=== PATIENT | male | born 1940 | race Caucasian/White ===

== ENCOUNTER 2020-11-06 14:25 | Outpatient (REF) | payer MEDICARE, SELFPAY | END 2020-11-06 14:26 | disposition home or self-care (01) | LOC: HO.BBR 14:25 | PROVIDERS: Visit Provider Internal Medicine | DX: Z13.89 Encounter for screening for other disorder (principal) ==

== ENCOUNTER 2025-07-17 13:36 | Outpatient (AMB) | payer MEDICARE, SELFPAY ==
[2025-07-17 13:38] VITALS: BMI 25.1
--- NOTE | 2025-07-17 13:38 | A.PHYSOV ---
Vital Signs 07/17/25 13:38 Height 5 ft 10 in Weight 175 lb BMI 25.1 Intake Visit Reasons: MRI followup Intake Note: Patient is a 84 year old male in office today for Lumbar MRI results. 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 The lumbar sacral spine MRI on January 08, 2023, revealed diffuse degenerative changes with severe right and moderate left neural foraminal stenosis, and moderate central canal stenosis at the L3-L4 level. A right L3 transforaminal injection on December 17, 2023, initially provided an 80% reduction in symptoms. A subsequent procedure on May 11, 2025, failed to offer significant relief, leading to a referral for another MRI. The MRI on June 22, 2025, showed progression to severe spinal canal stenosis at the L3-L4 level and moderate to severe bilateral neural foraminal narrowing at both L3-L4 and L4-L5 levels. The patient experiences neuropathy and knee pain, exacerbated by standing or walking, but alleviated when using a shopping cart or sitting. The knee pain is likely associated with the lumbar spinal issues, particularly the L3-L4 central stenosis and L3 and L4 neural foraminal stenosis. Results - MRI (January 08, 2023): Diffuse degenerative changes, severe right and moderate left neural foraminal stenosis, moderate central canal stenosis at L3-L4. - MRI (June 22, 2025): Severe spinal canal stenosis at L3-L4, moderate to severe bilateral neural foraminal narrowing at L3-L4 and L4-L5. FORMERLY [facility], [facility] Medical History (Updated 07/17/25 @ 13:55 by Philip Fowler DO) Lumbar radiculitis Spinal stenosis, lumbar region with neurogenic claudication Surgical History History of coronary artery stent placement Status post cardiac surgery History of neck surgery History of cataract surgery History of tonsillectomy History of back surgery Social History Alcohol intake: current Alcohol intake frequency: holidays/special occasions only Patient Tobacco Use Status: Former Tobacco user Use of substances other than those prescribed or required for medical reasons: No Current occupational status: retired Review of Systems Narrative Review of Systems - Musculoskeletal: Reports knee pain when standing or walking. - Neurological: Reports neuropathy. Denies change in bowel bladder habits, denies fever or chills, denies uncontrolled depression or suicidal ideation Physical Exam Exam Exam: Physical Exam Patient appears to be in no acute distress. Forward flexed posture. Lumbar extension was restricted. Dural tension signs were negative. Neurological examination was nonfocal. Heel walk and toe walk were not tested. SI provocative maneuvers were negative. Patient demonstrated no upper motor neuron signs. Procedures and Interventions Vital Signs: BMI result Body Mass Index 25.1 Assessment & Plan Assessment & Plan (1) Spinal stenosis, lumbar region with neurogenic claudication: Code(s): M48.062 - Spinal stenosis, lumbar region with neurogenic claudication Category: Medical (2) Lumbar radiculitis: Code(s): M54.16 - Radiculopathy, lumbar region Category: Medical Plan Plan Patient was informed and verbally consented to the use of an ambient scribe for clinic note documentation during this visit. 1. Lumbar Radiculitis The patient has been experiencing lumbar radiculitis, with a history of significant symptom relief following a right L3 transforaminal injection on December 17, 2023. However, a repeat procedure on May 11, 2025, did not yield the same relief, necessitating further evaluation. The plan includes referral to a spine surgeon for potential surgical intervention, given the progression of spinal stenosis and persistent symptoms. 2. Spinal Canal Stenosis The patient's spinal canal stenosis has progressed, as evidenced by the MRI findings from June 22, 2025, showing severe stenosis at the L3-L4 level. The patient is referred to a spine surgeon to discuss potential surgical options, including minimally invasive procedures to alleviate nerve compression. 3. Neural Foraminal Stenosis Neural foraminal stenosis at the L3-L4 and L4-L5 levels has been confirmed by MRI, contributing to the patient's symptoms. The patient is advised to consult with a spine surgeon to explore surgical interventions that may relieve the foraminal narrowing. 4. Knee Pain The patient experiences knee pain, particularly when standing or walking, which may be associated with the lumbar spinal stenosis. The patient is encouraged to discuss this with the spine surgeon to assess if surgical intervention could alleviate the symptoms. Discussion Notes During the visit, I discussed with the patient the progression of spinal stenosis and the potential need for surgical intervention. I explained that a spine surgeon would evaluate the MRI findings and determine the best course of action, which may include minimally invasive surgery to relieve nerve compression. We also talked about the possibility of using a walker to alleviate symptoms while waiting for surgical consultation. Patient Instructions - Follow up with the spine surgeon as scheduled. - Use a walker or shopping cart to help relieve pain when standing or walking. - Contact the clinic if symptoms worsen or if there are any questions. Orders: Referrals Neuro Spine Referral M48.062 - Spinal stenosis, lumbar region with neurogenic claudication, M54.16 - Radiculopathy, lumbar region Coding Level of Care Code Est Pt Level 4 (04318) Complex visit Add On G2211 Diagnoses Spinal stenosis, lumbar region with neurogenic claudication M48.062 Lumbar radiculitis M54.16
--- OUTSIDE RECORDS SUMMARY | 2025-07-17 17:30 | XMS_ITS | Patient Health Record ---
Author Organization [facility] Address [address] [place] [address] Care Team Providers Care Shoe Stock Associate Name Role Phone Binta Haskins MD Primary Care Provider Pranay Grey Unavailable [phone] Allergies Allergen (clinical drug ingredient) Drug/Non Drug Allergy documented on EMR Reaction Allergy Type Onset Date Status amoxicillin Amoxicillin hives Drug Allergy Act js morphine Morphine Sulfate does not work Drug Allergy Active Reason For Referral No Information Medications Medication SIG (Take, Route, Frequency, Duration) Notes Start Date End Date Status Finasteride 5 MG 1 tablet Orally Once a day; Duration: 30 day(s) Active oxyCODONE HCl 5 MG Orally TID Active Pantoprazole Sodium 40 MG 1 tablet Orall y Once a day; Duration: 30 day(s) Active Rosuvastatin Calcium 40 MG 1 tablet Oral ly Once a day; Duration: 30 day(s) Active Valsartan 80 MG 1 tablet Orally Twic e a day Active Metoprolol Succinate 100 MG 1 capsule Or ally Once a day; Duration: 30 day(s) Active TraZODone HCl ER Act js Olodaterol HCl 2.5 MCG/ACT 2 puffs Inhal ation Once a day Active Aspir-81 Active clonazePAM 2 MG 1 tablet Orally Once a day Active Amitiza 8 MCG 1 capsule with food and water Orally Twice a day; Duration: 30 day(s) Active fentaNYL 25 MCG/HR 1 patch to skin Transdermal Active Social History Tobacco Use: Social History Observation Description Date Details (start date - stop date) Former Smoker NA - NA Tobacco Use/Smoking Question Answer Notes Are you a: former smoker Additional Findings: Tobacco Non-User Current no n-smoker Alcohol Screen Question Answer Notes Did you have a drink contain ing alcohol in the past year? Yes How many drinks did you have on a typical day when you were drinking in the past year? 1 or 2 drinks (0 point) How often did you have 6 or more drinks on one occasion in the past year? Weekly (3 points) Points 3 Interpretation Negative Tobacco use other than smoking: Question Answer Notes Are you an other tobacco user? No Problems Problem Type SNOMED Code ICD Code Onset Dates Problem Status W/U Status Risk Notes Problem Bilateral atherosclerosis of arteries of lower limbs (disorder) ([id number] ) Atherosclerosis of jackson artery of both lower extremities, with unspecified presence of clinical manifestation (I70.203) Active confirmed Plan Of Treatment Pending Test Test Name Order Date [id number] NAIL, 6 OR MORE 09/28/2019 [id number] Plate 09/28/2019 [id number] SKIN LESIONS, 2 TO 4 09/28/19 20 Insurance Providers Payer Name Payer Address Payer Phone Subscriber Number Group Number Insured Name Patient Relationship to Insured Coverage Start Date Coverage End Date [employer] [place] [employer]age [facility] [address] [place] [address] [id number] Luis Olivia Self - patient is the insured Medical (General) History Medical History History ICD Code Anxiety Arthritis Back,Hip,and Knee pain CAD (Cholesterol) Depression Heart disease Hiatal hernia High blood pressure Measles Mumps Chicken pox Surgical History Surgery Date(Month/Year) double bypass 2012 carotid artery 2019 gall bladder 2019 appendectomy 2019 hemorrhoidectomy 2019
--- OUTSIDE RECORDS SUMMARY | 2025-07-17 17:30 | XMS_ITS ---
Author Name [facility] Organization Unknown Care Team Organization Name Specialty Phone Email Start Date End Da te [facility] Eyal Zeng Primary Care 06/30/20222023
--- OUTSIDE RECORDS SUMMARY | 2025-07-17 17:31 | XMS_ITS | Clinical Summary ---
Author Organization [employer] [facility] Address [address] [place] [address] Care Team Providers Care Willow Machine Operator Name Role Phone Larry Cali MD Primary Care Provider [phone] Allergies Active Allergy Reactions Criticality Noted Date Comments Morphine And Codeine 09/03/2020 Penicillins 09/03/2020 Medications Medication Sig Dispensed Refills Start Date End Date Status amLODIPine (NORVASC) tablet 5 mg Take 1 tablet (5 mg total) by mouth every night at bedtime. 0 05/31/2020 Active metoprolol succinate (TOPROL-XL) 24 hr tablet 100 mg Take 1 tablet (100 mg total) by mouth daily. 0 06/08/2020 Active oxyCODONE (ROXICODONE) 5 MG immediate release tablet TAKE 1 TABLET BY MOUTH 3 TIMES A DAY NEEDED FOR LOW BACK ARTHRITIS PAIN 0 08/27/2020 Active pantoprazole (PROTONIX) 40 MG tablet Take 1 tablet (40 mg total) by mouth daily. 0 06/12/2020 Active valsartan (DIOVAN) tablet 80 mg Take 1 tablet (80 mg total) by mouth. 0 Active rosuvastatin (CRESTOR) tablet 40 mg Take 1 tablet (40 mg total) by mouth. 0 Active fentaNYL 37.5 MCG/HR PT72 0 08/20/2021 Active traZODone (DESYREL) 100 MG tablet Take 1 tablet (100 mg total) by mouth every night at bedtime. 0 Active finasteride (PROSCAR) 5 MG tablet Take 1 tablet (5 mg total) by mouth daily. 0 Active aspirin EC 81 MG tablet Take 1 tablet (81 mg total) by mouth daily. 0 Active pregabalin (LYRICA) capsule 50 mg Take 1 capsule (50 mg total) by mouth 3 (three) times a day. 0 Active Active Problems Problem Noted Date Diagnosed Date COVID-19 08/09/[address] scan of lung 08/09/2023 Weight loss 08/09/2023 Hereditary hemochromatosis 08/24/2019 Centrilobular emphysema 06/16/2017 PVD (peripheral vascular disease) 01/19/2012 Overview: Overview: Carotid stenosis, ED. 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 stent x 2, IMI RCA stent x 1, repeat cath 09/18/02 then 02/04/10 for CP by JZ: LVEF 65%, distal L main 40% near bifurcation to LAD & LCX. Prox LAD 50%, mid LAD long segment up to 65%. RCA 50% just before stent and mild instent restenosis. Medical RX, if unstable then CABG to LAD. Neg Lexiscan MIBI 02/11/11, nl LVEF. Social History Tobacco Use Types Packs/Day Years Used Date Smoking Tobacco: Never Assessed Sex and Gender Information Value Date Recorded Sex Assigned at Not on file Gender Identity Not on file Sexual Orientation Not on file Job Start Date Occupation Industry Not on file Not on file Not on file Last Filed Vital Signs Vital Sign Reading Time Taken Comments Blood Pressure 132/58 05/10/2024 2:02 PM EDT Pulse 52 05/10/2024 2:02 PM EDT Temperature 36.6 C (97.8 F) 05/10/2024 2:02 PM EDT Respiratory Rate - - Oxygen Saturation 97% 05/10/2024 2:02 PM EDT Inhaled Oxygen Concentration - - Weight 87.7 kg (193 lb 6.4 oz) 05/10/2024 2:02 P M EDT Height - - Body Mass Index - - Plan of Treatment Health Maintenance Due Date Last Done Comments COVID-19 Vaccine (#1) 03/11/1941 Depression Screening 1953 Preventative Health Evaluation 1959 Fall Risk Assessment 2006 RSV Adult > 60+ Yrs or (1 - 1-dose 75+ series) 2016 Influenza Vaccine (#1) 2025 3, 06/08/2022, 05/12/2021, Additional history exists DTap / Tdap / Td (4 - Td or Tdap) 01/13/2033 01/13/2023, 01/05/2013, 01/05/2013, Additional history exists Shingrix-Zoster Vaccine Completed 04/28/2018, 11/04 Pneumococcal Vaccine Completed 01/13/2023, 06/16/2017, 08/02/2015, Additional history exists Hepatitis B Vaccines Aged Out No long er eligible based on patient's age to complete this topic RSV Ped < 20 months Aged Out No longe r eligible based on patient's age to complete this topic Care Teams Willow Machine Operator Relationship Specialty Start Date End Date Larry Cali MD [address] [place] [address] PCP - General Internal Medicine 09/25/22
--- OUTSIDE RECORDS SUMMARY | 2025-07-17 17:31 | XMS_ITS | Clinical Summary ---
Author Organization [facility] Address [address] [place] [address] Phone Care Team Providers Care Orientation And Mobility Instructor Name Role Phone Larry Cali MD Primary Care Provider [phone] Allergies Active Allergy Reactions Criticality Noted Date Comments Morphine 09/03/2020 Penicillins Hives 01/05/2006 Medications amLODIPine (NORVASC) 5 mg tablet Take 1 tablet (5 mg total) by mouth 1 (one) time each day. Active aspirin 81 mg EC tablet Take by mouth. Activ e cholecalciferol (VITAMIN D-3) 50 mcg (2,000 unit) tablet Take by mouth. Ac tive cyanocobalamin (VITAMIN B-12) 1,000 mcg tablet Take 1 tablet (1,000 mcg total) by mouth 1 (one) time each day. 5 Active escitalopram (LEXAPRO) 5 mg tablet Take 3 tablets (15 mg total) by mouth 1 (one) time each day. Active fentaNYL (DURAGESIC) 25 mcg/hr APPLY TOPICALLY EVERY 72 HOURS,INSTR:D O NOT FILL UNTIL 04/18/25 DIRECTED ON PACKAGE LABELING. Active finasteride (PROSCAR) 5 mg tablet Take 1 tablet (5 mg total) by mouth 1 (one) time each day. Active metoprolol succinate (TOPROL-XL) 50 mg 24 hr tablet Take 1 tablet (50 mg total) by mouth 1 (one) time each day. 5 Active nitroglycerin (NITROSTAT) 0.4 mg SL tablet PLEASE SEE ATTACHED FOR DETAILED DIRECTIONS Active oxyCODONE (ROXICODONE) 5 mg immediate release tablet TAKE 1 TABLET BY MOUTH 4 TIMES A DAY NEEDED FOR SEVERE PAIN Active pantoprazole (PROTONIX) 40 mg EC tablet Take 1 tablet (40 mg total) by mouth 1 (one) time each day. Active pregabalin (LYRICA) 50 mg capsule Take 1 capsule (50 mg total) by mouth 2 (two) times a day. Active rosuvastatin (CRESTOR) 40 mg tablet Take 1 tablet (40 mg total) by mouth. Active traZODone (DESYREL) 100 mg tablet Take 1 tablet (100 mg total) by mouth. Active valsartan (DIOVAN) 80 mg tablet Take 1 tablet (80 mg total) by mouth. Active Active Problems Problem Noted Date Diagnosed Date Hereditary hemochromatosis (CMS/HCC V24) 020 Overview (05/09/2025): Dr. Tesfaye, restarting phlebotomy 08/2020 Encounters Date Type Department Care Team Description 05/09/2025 2:00 PM EDT Office Visit [facility] Hematology Oncology [address] [place] [address] Subramonia-Tati Pham MD Hereditary hemochromatosis ([facility]/HCC V24) (Primary Dx) from Last 3 Months Social History Tobacco Use Types Packs/Day Years Used Date Smoking Tobacco: Former Cigarettes Tobacco Cessation:Counseling Given: Not Answered Alcohol Use Standard Drinks/Week Comments Not Currently 0 (1 standard drink = 0.6 oz pur e alcohol) Sex and Gender Information Value Date Recorded Sex Assigned at Not on file Legal Sex Male 10:38 AM EST Gender Identity Not on file Sexual Orientation Not on file Obstetrics History Last Filed Vital Signs Vital Sign Reading Time Taken Comments Blood Pressure 128/47 05/09/2025 2:13 PM EDT Pulse 51 05/09/2025 2:13 PM EDT Temperature 37 C (98.6 F) 05/09/2025 2:13 PM EDT Respiratory Rate - - Oxygen Saturation 95% 05/09/2025 2:13 PM EDT Inhaled Oxygen Concentration - - Weight 83.3 kg (183 lb 9.6 oz) 05/09/2025 2:13 P M EDT Height 177.8 cm (5' 10 ) 05/09/2025 2:13 PM EDT Body Mass Index 26.34 05/09/2025 2:13 PM EDT Plan of Treatment Upcoming Encounters Date Type Department Care Team (Late st Contact Info) Description 05/08/2026 2:00 PM EDT Office Visit [facility] Hematology Oncology [address] [place] [address] Tati Ibrahim MD [address] [place] [address] Health Maintenance Due Date Last Done Comments Colorectal Cancer Screening: Colonoscopy 1940 Hepatitis A Vaccines (1 of 2 - Risk 2-dose series) 1960 Hepatitis B Vaccines (1 of 3 - Risk 3-dose series) 2001 RSV Immunization Adult Patients (1 - 1-dose 75+ series) 2016 Cholesterol Screening (Lipid Panel) 08/01/2022 Falls Risk Assessment 08/01/2022 Medicare Annual Wellness Visit 08/01/2022 Social Influencers of Health Screening 08/01/2022 Hypertension/CHF/CAD Annual BMP Blood Test 08/02/2022 Depression Screening 08/23/2024 COVID-19 Vaccine ( season) 2025 07/31/2022, 08/30/2021, 10/05/2020, Additional history exists Influenza Vaccine (#1) 2025 , 05/17/2023, 06/08/2022, Additional history exists DTaP,Tdap,and Td Vaccines (5 - Td or Tdap) 01/13/2033 01/13/2023, 01/05/2013, 03/05/2011, Additional history exists Zoster Vaccines Completed 04/28/2018, 10/21, 11/04/2012 Pneumococcal Vaccine: 50+ Years Completed 01/13/2023, 06/16/2017, 08/02/2015, Additional history exists HIB Vaccines Aged Out No longer eligi ble based on patient's age to complete this topic HPV Vaccines Aged Out No longer eligi ble based on patient's age to complete this topic IPV Vaccines Aged Out No longer eligi ble based on patient's age to complete this topic MMR Vaccines Aged Out No longer eligi ble based on patient's age to complete this topic Meningococcal ACWY Vaccine Aged Out N o longer eligible based on patient's age to complete this topic Meningococcal B Vaccine Aged Out No l onger eligible based on patient's age to complete this topic RSV Immunization Patients Under 20 months Aged Out No longer eligible based on patient's age to complete this topic Varicella Vaccines Aged Out No longer eligible based on patient's age to complete this topic Insurance [employer] Care Teams Orientation And Mobility Instructor Relationship Specialty Start Date End Date Larry Cali MD [id number] [place], [place] [id number] PCP - General 09/25/22
== END 2025-07-17 14:00 | disposition home or self-care (01) ==
LOC: HO.HPHYS 13:36
PROVIDERS: PCP Internal Medicine; Visit Provider Physical Medicine & Rehabilitation
DX: M48.062 Spinal stenosis, lumbar region with neurogenic claudication (principal); M54.16 Radiculopathy, lumbar region
CPT/HCPCS: 99214; G2211

== ENCOUNTER → 2025-07-17 13:36 | Outpatient (BNVA) | payer MEDICARE, SELFPAY | PROVIDERS: PCP Internal Medicine; Visit Provider Physical Medicine & Rehabilitation | DX: M48.062 Spinal stenosis, lumbar region with neurogenic claudication (principal); M54.16 Radiculopathy, lumbar region; M25.569 Pain in unspecified knee | CPT/HCPCS: 99212 ==

== ENCOUNTER 2025-08-08 12:39 | Outpatient (AMB) | payer MEDICARE, SELFPAY ==
--- NOTE | 2025-08-08 13:04 | A.SPINEOV_ITS ---
Intake Visit Reasons: lumbar stenosis Intake Note: Mr. Knapp is here today c/o back pain. MRI done @ [facility]. 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 Fowler, Thank you for referring Luis to our office today. He is a pleasant 84 year old male who is referred to us by your office for evaluation/consideration of surgical intervention due to worsening spinal stenosis. He had previous injections with the L3-4 level which provided good relief of his pain. Unfortunately his pain returned and he attempted to another series of injections which did not seem particularly helpful at treating his pain. He reports that he has suffered from fairly severe low back pain for > 20+ years. He identifies an inciting incident and states that he was in the decades ago and jumped off of a large truck with his gear on and experienced a sharp pain in his low back. Since this he has had essentially persistent low back pain which has waxed and waned in severity. In addition to this more recently in the last co uple of years he reports he began suffering from left knee pain that is very well localized to the left knee. When discussing this further he reports that there is no radiation of symptoms from hiw low back into his left knee, and feels the pain is really well localized the patellar region (does not encompass the thigh or anterior tibialis). He denies any numbness/tingling/burning associated with the pain. He does not identify any worse cramping/numbness in his thighs / legs with ambulation. He actually states that he feels more cramping in his legs when he is sitting down resting vs. standing and walking. Despite this, he is concerned that he is only able to walk about a half a block without his back hurting to the point where he asked to sit down and rest. He has attempted injections in his left knee in the past which he reports were only modestly helpful. He states he has never been evaluated by an orthopedic surgeon for his left knee issue, and is unsure if he may need a TKA. He is currently taking oxycodone , Lyrica, and fentanyl patches for his low back pain. He states that he has been on these medications for more than 10 years for this reason. He does report a pertinent past medical history of a lumbar decompression performed many years ago (unable to identify the date, but it was before the 1999's). He is currently rating his daily pain in his about a 4/10. PMH: History of myocardial infarction with open heart surgery in 2011. History of appendectomy in 1959. History of lumbar decompression surgery (unknown time frame), history of right sided carotid endarterectomy (unknown time frame). The patient denies any other medical diagnoses however is on several medications indicative of other diagnoses. Social hx: The patient does not smoke, reports no substance use. Medications: See [facility] list (patient is on nitroglycerin, aspirin, oxycodone, fentanyl, Lyrica...etc). Allergies: Morphine, penicillins. Physical exam: The patient has full 5/5 strength in his upper and lower extremities. He ambulates well but is slightly hunched over when doing so. She uses no assistive devices to ambulate. He rises from a seated position independently without needing to brace himself on the chair. He gets up onto the examination table without much issue. He reports no sensational deficits to light touch during exam. His bilateral patellar reflexes are 1+ hypoactive. The rest of his reflexes appear 2+ intact. (-) bilateral straight leg raise, (- ) Arroyo's, (-) clonus. Imaging review: MRI of the lumbar spine completed at [facility] is very poor quality in the images are very dark even when attempting to adjust for brightness. It appears to show moderate bilateral foraminal stenosis at L2-3, severe central canal and bilateral foraminal stenosis at L3-4, moderate bilateral foraminal stenosis at L4-5, and a posterior disc bulge contributing to moderate bilateral foraminal stenosis L5-S1. Impression: Mr. Olivia is a pleasant 84-year-old male who comes in today for evaluation of low back pain and left knee pain. He also reports some cramping of his lateral thighs that with prolonged sitting. Given that his left knee pain is well localized to the patella region of the left knee, and is not associated with any shooting/radicular pain originating from the spine and traveling down the leg, and is also not associated with any nu mbness/burning/weakness I believe this is most likely a musculoskeletal issue related to the left knee itself versus a nerve compression issue causing pain only localized to the knee, that does not appear to significantly worsen with ambulation. Typically if a patient has significant compression of the thecal sac a lumbar decompression surgery has a high level of utility for neurogenic claudication symptoms in the legs, such as thigh cramping, leg numbness, or a feeling of weakness in the legs. Unfortunately, this surgery as fairly low utility for back pain itself. In order to treat the patient's back pain we would have to start discussing lumbar fusion of the L3-4 segment. Generally speaking the patient is averse to this idea, and he is also on chronic opiates which would likely make recovery and postoperative pain control fairly difficult. I think the best place for this patient to start would be to have an evaluation done by orthopedics to see if he needs a left knee replacement. He was encouraged to come back to see us if his daily constant low back pain becomes more severe than a 4/10, or if he starts to experience pain/cramping/numbness/weakness of his lower extremities that worsens with ambulation. At this time I would not recommend any specific neurosurgical intervention in this patient's case. Thank you for allowing us to care for your patient. The total time spent with this visit with this patient was 45 minutes reviewing history, physical exam, MRI imaging review, and implementation of treatment plan or further diagnostic testing eLeroy Carey MD,PhD [facility] Orders: Referrals Orthopedics Referral M25.562 - Pain in left knee Coding Level of Care Code New Pt Level 4 (08435) Diagnoses Spinal stenosis M48.00
--- OUTSIDE RECORDS SUMMARY | 2025-08-08 16:49 | XMS_ITS | Patient Health Record ---
Author Organization [facility] Address [address] [place] [address] Care Team Providers Care Heel Former Name Role Phone Binta Haskins MD Primary Care Provider Pranay Grey Unavailable [phone] Allergies Allergen (clinical drug ingredient) Drug/Non Drug [...] atherosclerosis of arteries of lower limbs (disorder) ([id number] ) Atherosclerosis of [place] artery of both lower extremities, with unspecified presence of clinical manifestation (I70.203) Active confirmed Plan Of Treatment Pending Test Test Name Order Date [id number] NAIL, 6 OR MORE 09/28/2019 [id number] Plate 09/28/2019 [id number] SKIN LESIONS, 2 TO 4 09/28/19 20 Insurance Providers Payer Name Payer Address Payer Phone Subscriber Number Group Number Insured Name Patient Relationship to Insured Coverage Start Date Coverage End Date [employer] [place] [employer]vantage [facility] [address] [place] [address] [phone] [id number] Luis Olivia Self - patient is the insured Medical (General) History Medical History History ICD Code Anxiety Arthritis Back,Hip,and Knee pain CAD (Cholesterol) Depression Heart disease Hiatal hernia High blood pressure Measles Mumps Chicken pox Surgical History Surgery Date(Month/Year) double bypass 2012 carotid artery 2019 gall bladder 2019 appendectomy 2019 hemorrhoidectomy 2019
--- OUTSIDE RECORDS SUMMARY | 2025-08-08 16:49 | XMS_ITS | Clinical Summary ---
Author Organization [facility] Prior to 01/20/25 Address [address] [place] [address] Care Team Providers Care Prize Fighter Name Role Phone Larry Cali MD Primary Care Provider [phone] Allergies Active Allergy Reactions Criticality Noted Date [...] 01/19/2012 Overview: Overview: Carotid stenosis, ED. Old MA (myocardial infarction) 01/05/2006 Overview: Overview: Non-Q MA , circ. stent x 2, IMI RCA stent x 1, repeat cath 09/18/02 then 02/04/10 for CP by AngelaZ: LVEF 65%, distal L main 40% near [...] age to complete this topic Care Teams Prize Fighter Relationship Specialty Start Date End Date Larry Cali MD [address] [place] [address] PCP - General Internal Medicine 09/25/22
--- OUTSIDE RECORDS SUMMARY | 2025-08-08 16:49 | XMS_ITS | Clinical Summary ---
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 Tesfaye, restarting phlebotomy 08/2020 Encounters Date Type Department Care Team Description 05/09/2025 2:00 PM EDT Office Visit [facility] Hematology Oncology [address] [place] [address] Que-Tati Pham MD Hereditary hemochromatosis (CMS/HCC V24) (Primary Dx) from Last 3 Months [...] on file Sexual Orientation Not on file Last Filed Vital Signs [...] Description 05/08/2026 2:00 PM EDT Office Visit [facility] Hematology Oncology [address] [place] [address] Tati Ibrahim MD [address] [place] [address] Health Maintenance Due Date Last [...] patient's age to complete this topic Insurance [id number] [place] [address] [employer] [place] MEDIC[employer] ADVANTAGE Care Teams Trade Mark Examiner Relationship Specialty Start Date End Date Larry Cali MD [id number] [place] [address] PCP - General 09/25/22
== END 2025-08-08 14:03 | disposition home or self-care (01) ==
LOC: HO.HNS 12:39
PROVIDERS: PCP Internal Medicine; Referring Provider Physical Medicine & Rehabilitation; Visit Provider Physician Assistant
DX: M48.00 Spinal stenosis, site unspecified (principal)
CPT/HCPCS: 99204

== ENCOUNTER → 2025-08-08 12:39 | Outpatient (BNVA) | payer MEDICARE, SELFPAY | PROVIDERS: PCP Internal Medicine; Referring Provider Physical Medicine & Rehabilitation; Visit Provider Physician Assistant | DX: M48.00 Spinal stenosis, site unspecified (principal) | CPT/HCPCS: 99202 ==